=== PATIENT | male | born 1990 | race Caucasian/White ===

== ENCOUNTER 2018-03-17 13:21 | Emergency (ER) | payer OTHER ==
[~2018-03-17] VITALS: Ht 167.6 cm; Wt 66.7 kg
[2018-03-17 13:23] VITALS: TEMP 36.6; Ht 167.6 cm; Wt 66.7 kg
[2018-03-17] MEDS ORDERED: ONDANSETRON INJ 2 MG/ML 2 ML VIAL IV STA (13:30)
[2018-03-17] MEDS ORDERED: MoRPHine SULFATE 4 MG/ML 1 ML CARP\\VIAL IV STA (13:30)
[2018-03-17] MEDS ORDERED: SODIUM CHLORIDE 0.9% 1000ML 1,000 ML IV STA (13:30)
[2018-03-17] MEDS ORDERED: OPTIRAY 320 IV PRN (13:45)
[2018-03-17 14:08] LABS: ALBUMIN 4.4 gm/dl (3.4-5.0); CALCIUM 9.1 mg/dl (8.5-10.1); CREATININE 1.24 mg/dl (0.60-1.40); POTASSIUM 3.4 mmol/L (3.5-5.1)
[2018-03-17 14:11] LABS: TOTAL PROTEIN 7.4 gm/dl (6.4-8.2)
--- NOTE | 2018-03-17 14:45 | DIAGNOSTIC IMAGING REPORT ---
CT ABD/PELVIS IV CONTRAST ONLY CLINICAL HISTORY: Severe left-sided abdominal pain COMPARISON STUDY: None. TECHNIQUE: Following the IV administration of 94 mL of Optiray-320, CT scan of the abdomen and pelvis was performed from the lung bases to the proximal femurs. Images are reviewed in the axial, sagittal, and coronal planes. IV contrast was administered without complication. A dose lowering technique was utilized adhering to the principles of ALARA. CT DOSE: 280.90 mGy.cm FINDINGS: Lower chest: The heart is normal in size and configuration, without pericardial effusion. The lung bases and pleural spaces are clear. Liver: There is periportal edema, likely secondary to aggressive hydration. No focal hepatic masses are visualized. Gallbladder: Unremarkable. Spleen: Normal in size and attenuation. Pancreas: Unremarkable. Adrenal glands: Unremarkable. Kidneys: There is moderate left-sided hydronephrosis with dilatation of the left renal pelvis and calyces. There is left-sided perinephric fluid. No calculi are visualized. The configuration is typical of a UPJ type obstruction. There is a small 9 mm hypodensity involving the lower pole the left kidney. This exceeds water attenuation. Diagnostic considerations include a complex cyst, tiny renal infarct, or area of focal infection. Bowel: There are no transition zones indicate bowel obstruction. There are fluid-filled small bowel loops. There is small bowel feces. This could be secondary to either an ileus or motility problem. The appendix appears normal. There is no acute diverticulitis. Peritoneum: There is no intraperitoneal free air or abdominal ascites. Vasculature: The abdominal aorta is normal in course and caliber. Adenopathy: None. Pelvic viscera: The bladder, and pelvic viscera are unremarkable. Skeletal structures: No destructive osseous lesions are seen. IMPRESSION: 1. Moderate left-sided hydronephrosis with left perinephric fluid. The configuration is typical of a UPJ type obstruction. No calculi are visualized 2. 9 mm hypodensity involving the lower pole of the left kidney. Diagnostic considerations include a complex cyst, tiny renal infarct, or focal area of infection 3. Fluid-filled small bowel loops with a small bowel feces sign. There are no transition zones indicate bowel obstruction. Likely diagnostic considerations therefore include either an ileus, or motility disorder. 4. Normal appendix. No evidence of acute diverticulitis. Electronically signed by: Clive Ga M.D. 03/17/2018 2:44 PM Dictated Date/Time: 03/17/2018 2:36 PM
[2018-03-17] MEDS ORDERED: TAMS0.4C38 PO (15:29)
[2018-03-17] MEDS ORDERED: OXYC1TAB3 PO (15:29)
--- NOTE | 2018-03-17 15:48 | EMERGENCY ROOM VISIT NOTE ---
History Report prepared by Monicaibavni: Chandana Morrow Under the Supervision of: Dr. Siomne Prince D.O. First contact with patient: 13:26 Chief Complaint: FLANK PAIN Stated Complaint: ACUTE STOMACH ACHE ON LEFT SIDE History of Present Illness The patient is a 27 year old male who presents to the Emergency Room with complaints of constant LUQ abdominal pain beginning four hours ago. He was seen at [facility] just prior to arrival and was referred to the ED. The patient's pain is improved with movement. He rates his pain as a 7/10 in severity and describes it as "it feels like something is stuck" on the left upper quadrant/left abdomen. He was sitting in a conference when his pain began. No other exacerbating or remitting factors. He has had this once before in the past. Uncertain of the etiology at this time as it only lasted 2 hours. Pt denies headache, change in vision, fevers, chest pain, shortness of breath, nausea, vomiting, diarrhea, pain with urination, and melena. His last normal bowel movement was a few hour ago. He has a history of abdominal TB. Source of History: patient Onset: Four hours ago Position: abdomen (LUQ) Symptom Intensity: 7/10 Quality: other ("like something is stuck") Timing: constant Modifying Factors (Relieving): movement Associated Symptoms: No fevers, No headache, No chest pain, No SOB, No nausea, No vomiting, No melena, No diarrhea, No urinary symptoms Review of Systems See HPI for pertinent positives & negatives. A total of 10 systems reviewed and were otherwise negative. Past Medical & Surgical Medical Problems: (1) No Known Active Medical Problems (2) Tuberculosis Family History No pertinent family history stated. Social History Smoking Status: Never Smoker Occupation Status: [employer] Current/Historical Medications Scheduled Tamsulosin Hcl (Flomax), 0.4 MG PO DAILY Scheduled PRN Oxycodone Immediate Rel Tab (Roxicodone Ir), 5 MG PO Q6H PRN for Pain Allergies Coded Allergies: No Known Allergies (Unverified , 03/17/18) Physical Exam Vital Signs Date Time Temp Pulse Resp B/P (MAP) Pulse Ox O2 Delivery O2 Flow Rate FiO2 03/17/18 14:50 88 15 154/96 97 Room Air 03/17/18 13:56 82 20 145/103 96 Room Air 03/17/18 13:23 36.6 77 18 148/92 95 Room Air Physical Exam GENERAL: Sitting up in bed, in minimal distress, non-toxic. Holding left side of abdomen. EYE EXAM: normal conjunctiva. OROPHARYNX: no exudate, no erythema, lips, buccal mucosa, and tongue normal and mucous membranes are moist NECK: supple, no nuchal rigidity, no adenopathy, non-tender LUNGS: Clear to auscultation. Normal chest wall mechanics HEART: no murmurs, S1 normal and S2 normal ABDOMEN: abdomen soft, normo-active bowel sounds, no masses, no rebound or guarding. Faint tenderness to the left abdomen. BACK: Back is symmetrical on inspection and there is no deformity, no midline tenderness, no CVA tenderness. : Normal external genitalia. Testicles non-tender. No masses. SKIN: no rashes and no bruising UPPER EXTREMITIES: upper extremities are grossly normal. LOWER EXTREMITIES: No pitting edema. NEURO EXAM: Normal sensorium, cranial nerves II-XII grossly intact, normal speech, no gross weakness of arms, no gross weakness of legs. Medical Decision & Procedures ER Provider Diagnostic Interpretation: Radiology results as stated below per my review and the radiologist's interpretation: CT ABD/PELVIS IV CONTRAST ONLY FINDINGS: Lower chest: The heart is normal in size and configuration, without pericardial effusion. The lung bases and pleural spaces are clear. Liver: There is periportal edema, likely secondary to aggressive hydration. No focal hepatic masses are visualized. Gallbladder: Unremarkable. Spleen: Normal in size and attenuation. Pancreas: Unremarkable. Adrenal glands: Unremarkable. Kidneys: There is moderate left-sided hydronephrosis with dilatation of the left renal pelvis and calyces. There is left-sided perinephric fluid. No calculi are visualized. The configuration is typical of a UPJ type obstruction. There is a small 9 mm hypodensity involving the lower pole the left kidney. This exceeds water attenuation. Diagnostic considerations include a complex cyst, tiny renal infarct, or area of focal infection. Bowel: There are no transition zones indicate bowel obstruction. There are fluid-filled small bowel loops. There is small bowel feces. This could be secondary to either an ileus or motility problem. The appendix appears normal. There is no acute diverticulitis. Peritoneum: There is no intraperitoneal free air or abdominal ascites. Vasculature: The abdominal aorta is normal in course and caliber. Adenopathy: None. Pelvic viscera: The bladder, and pelvic viscera are unremarkable. Skeletal structures: No destructive osseous lesions are seen. IMPRESSION: 1. Moderate left-sided hydronephrosis with left perinephric fluid. The configuration is typical of a UPJ type obstruction. No calculi are visualized 2. 9 mm hypodensity involving the lower pole of the left kidney. Diagnostic considerations include a complex cyst, tiny renal infarct, or focal area of infection 3. Fluid-filled small bowel loops with a small bowel feces sign. There are no transition zones indicate bowel obstruction. Likely diagnostic considerations therefore include either an ileus, or motility disorder. 4. Normal appendix. No evidence of acute diverticulitis. Electronically signed by: Clive Ga M.D. 03/17/2018 2:44 PM Laboratory Results 03/17/18 13:35 Red Blood Count 7.10, Mean Corpuscular Volume 75.2, Mean Corpuscular Hemoglobin 28.3, Mean Corpuscular Hemoglobin Concent 37.6, Neutrophils (%) (Auto) 92.1, Lymphocytes (%) (Auto) 5.2, Monocytes (%) (Auto) 2.0, Eosinophils (%) (Auto) 0.3 , Basophils (%) (Auto) 0.1, Neutrophils # (Auto) 18.38, Lymphocytes # (Auto) 1.03, Monocytes # (Auto) 0.40, Eosinophils # (Auto) 0.06, Basophils # (Auto) 0.02 03/17/18 13:35 Test 03/17/18 13:35 03/17/18 14:50 White Blood Count 19.94 K/uL (4.8-10.8) Red Blood Count 7.10 M/uL (4.7-6.1) Hemoglobin 20.1 g/dL (14.0-18.0) Hematocrit 53.4 % (42-52) Mean Corpuscular Volume 75.2 fL (80-100) Mean Corpuscular Hemoglobin 28.3 pg (25-34) Mean Corpuscular Hemoglobin Concent 37.6 g/dl (32-36) Platelet Count 315 K/uL (130-400) Neutrophils (%) (Auto) 92.1 % Lymphocytes (%) (Auto) 5.2 % Monocytes (%) (Auto) 2.0 % Eosinophils (%) (Auto) 0.3 % Basophils (%) (Auto) 0.1 % Neutrophils # (Auto) 18.38 K/uL (1.4-6.5) Lymphocytes # (Auto) 1.03 K/uL (1.2-3.4) Monocytes # (Auto) 0.40 K/uL (0.11-0.59) Eosinophils # (Auto) 0.06 K/uL (0-0.5) Basophils # (Auto) 0.02 K/uL (0-0.2) Immature Granulocyte % (Auto) 0.3 % Immature Granulocyte # (Auto) 0.05 K/uL (0.00-0.02) Red Blood Cell Morphology Unremarkable Anion Gap 7.0 mmol/L (3-11) Est Creatinine Clear Calc Drug Dose 79.3 ml/min Estimated GFR () 90.5 Estimated GFR (Non- 78.1 BUN/Creatinine Ratio 13.7 (10-20) Calcium Level 9.1 mg/dl (8.5-10.1) Total Bilirubin 0.5 mg/dl (0.2-1) Direct Bilirubin 0.1 mg/dl (0-0.2) Aspartate Amino Transf (AST/SGOT) 31 U/L (15-37) Alanine Aminotransferase (ALT/SGPT) 27 U/L (12-78) Alkaline Phosphatase 92 U/L (45-117) Total Protein 7.4 gm/dl (6.4-8.2) Albumin 4.4 gm/dl (3.4-5.0) Lipase 112 U/L (73-393) Urine Color YELLOW Urine Appearance CLOUDY (CLEAR) Urine pH 6.5 (4.5-7.5) Urine Specific [place] 1.041 (1.000-1.030) Urine Protein NEG (NEG) Urine Glucose (UA) NEG (NEG) Urine Ketones NEG (NEG) Urine Occult Blood 3+ (NEG) Urine Nitrite NEG (NEG) Urine Bilirubin NEG (NEG) Urine Urobilinogen NEG (NEG) Urine Leukocyte Esterase NEG (NEG) Urine WBC (Auto) 1-5 /hpf (0-5) Urine RBC (Auto) >30 /hpf (0-4) Urine Hyaline Casts (Auto) 1-5 /lpf (0-5) Urine Epithelial Cells (Auto) 5-10 /lpf (0-5) Urine Bacteria (Auto) NEG (NEG) Laboratory results per my review. Medications Administered Medications (Trade) Dose Ordered Sig/Thang Route Start Time Stop Time Status Last Admin Dose Admin Sodium Chloride 1,000 ml @ 999 mls/hr Q1H1M STAT IV 03/17/18 13:30 03/17/18 14:30 DC 03/17/18 13:30 999 MLS/HR Ondansetron HCl (Zofran Inj) 4 mg NOW STAT IV 03/17/18 13:30 03/17/18 13:33 DC 03/17/18 13:50 4 MG Morphine Sulfate (MoRPHine SULFATE INJ) 4 mg NOW STAT IV 03/17/18 13:30 03/17/18 13:33 DC 03/17/18 13:50 4 MG ED Course ED COURSE: Vital signs were reviewed and appeared normal. The patients medical record was reviewed The above diagnostic studies were performed and reviewed. ED treatments and interventions as stated above. 1327: The patient was evaluated in room C2B. A complete history and physical examination was performed. 1330: Ordered Morphine Sulfate 4 mg IV, Zofran Inj 4 mg IV, Sodium Chloride 1000 ml @ 999 mls/hr IV. 1450: I reassessed the patient. He is resting comfortably. 1530: Upon reevaluation, the patient is resting comfortably. I discussed my findings with the patient and he understands and agrees with the treatment plan. Based on the patients age, coexisting illnesses, exam and lab findings the decision to treat as an outpatient was made. The patient remained stable while under my care. The patient appeared well at the time of discharge. Medical Decision Differential diagnoses includes but is not limited to gastritis, peptic ulcer disease, GERD, gallbladder disease, pancreatitis, small bowel obstruction, acute coronary syndrome, pericarditis, ischemic bowel, irritable bowel disease, irritable bowel syndrome, appendicitis, diverticulitis, malignancy, hernia, urinary tract infection, torsion, perforation, trauma, infectious. Patient is a 27-year-old male who presents the ER for left upper quadrant abdominal pain which he describes as sharp stabbing and severe in nature. IV was established as he was extremely uncomfortable at bedside. He was given IV morphine with complete resolution of his symptoms. He had a leukocytosis of 19, 000. Hemoglobin was 20 suggesting dehydration. BMP along with LFTs, bilirubin and lipase was normal. UA with hematuria. CT of abdomen pelvis was performed and showed a likely UPJ obstruction with hydronephrosis. I discussed this with Dr. Taylor from urology who notes that based on his findings he has a UPJ obstruction and can be treated as an outpatient. Patient was updated at bedside. He was discharged with OxyIR and Flomax. Discussed with Pt concerning signs and symptoms to watch out for. Pt was instructed to follow up with their PCP and discussed with the patient their option to return to the ED at anytime for persistent or worsening symptoms. The appropriate anticipatory guidance and out-patient management, including indications for return to the emergency department, were explained at length to the patient and understood. [place] Drug Monitoring Program Search Results: patient reviewed within database, no issues identified Medication Reconcilliation Current Medication List: was personally reviewed by me Blood Pressure Screening Patient's blood pressure: Elevated blood pressure Blood pressure disposition: Elevated BP felt to be situational Consults Time Called: 1520 Consulting Physician: Dr. Taylor - Urology Returned Call: [phone] I reviewed the patient's case with Dr. Taylor. He has reviewed the patient's imaging, and believes the patient has UPJ obstruction. He recommends discharge and will follow up with the patient this week. Impression Primary Impression: Hydronephrosis Additional Impressions: Leukocytosis UPJ (ureteropelvic junction) obstruction Left flank pain Scribe Attestation The scribe's documentation has been prepared under my direction and personally reviewed by me in its entirety. I confirm that the note above accurately reflects all work, treatment, procedures, and medical decision making performed by me. Departure Information Dispostion Home / Self-Care Prescriptions Tamsulosin Hcl (FLOMAX) 0.4 Mg Cap 0.4 MG PO DAILY, #10 CAP Prov: Simone Prince, DO 03/17/18 Oxycodone Immediate Rel Tab (ROXICODONE IR) 5 Mg Tab 5 MG PO Q6H Y for Pain, #10 TAB Prov: Simone Prince, DO 03/17/18 Forms HOME CARE DOCUMENTATION FORM, IMPORTANT VISIT INFORMATION Patient Instructions Hydronephrosis Ch, Kidney Stone Urine, My [facility] Additional Instructions Please follow up with your primary care doctor or if you are a student, [facility] with in the next 24 hours. Any worsening of your symptoms, please return to the ED immediately. This includes any fevers greater than 100.4, worsening pain, chest pain, shortness breath, persistent nausea, vomiting, unable to eat or drink, or any other concerning signs or symptoms from your standpoint. Again any fevers greater than 100.4 please return immediately to the ER. Please take Tylenol Motrin as needed for pain. You were given medications during this visit that will inhibit your ability to drive, operate machinery and work. Please do NOT drive, operate machinery or work for the next 12hrs. You were also given a prescription for a narcotic. While taking this medication you should also not drive, operate machinery and or work. Problem Qualifiers Primary Impression: Hydronephrosis Hydronephrosis type: unspecified Qualified Codes: N13.30 - Unspecified hydronephrosis Additional Impressions: Leukocytosis Leukocytosis type: unspecified Qualified Codes: D72.829 - Elevated white blood cell count, unspecified
[2018-03-17 16:04] VITALS: BP 147/85; PULSE 89; O2SAT 97
[2018-03-18 12:59] LABS: WHITE BLOOD COUNT 17.61 K/uL (4.8-10.8)
[2018-03-18 13:00] LABS: BASO % 0.1 %; EOS % 0.1 %; EOS ABS # 0.02 K/uL (0-0.5); HEMATOCRIT 43.8 % (42-52); HEMOGLOBIN 15.8 g/dL (14.0-18.0); LYMPH % 4.1 %; LYMPH ABS # 0.72 K/uL (1.2-3.4); MEAN CELL VOLUME 76.2 fL (80-100); MEAN CORPUSCULAR HEMOGLOBIN 27.5 pg (25-34); MONO % 2.7 %; MONO ABS # 0.47 K/uL (0.11-0.59); NEUT % 92.9 %; NEUT ABS # 16.37 K/uL (1.4-6.5); PLATELET COUNT 245 K/uL (130-400)
[2018-03-18 13:01] LABS: IG# 0.02 K/uL (0.00-0.02)
[2018-03-18 13:02] LABS: BASO ABS # 0.02 K/uL (0-0.2)
[2018-03-18 13:12] LABS: MEAN CORPUSCULAR HGB CONC 36.1 g/dl (32-36)
== END 2018-03-17 16:04 | disposition home or self-care (01) ==
LOC: C.EDB 13:23 → C.EDC 16:04
DX: N13.0 Hydronephrosis with ureteropelvic junction obstruction (principal); D72.829 Elevated white blood cell count, unspecified; Z86.11 Personal history of tuberculosis